=== PATIENT | female | born 1940 | race Caucasian/White ===

== ENCOUNTER 2022-08-20 16:03 | Emergency (ER) | payer OTHER, SELFPAY ==
[2022-08-20 16:17] VITALS: BP 150/72; PULSE 82; RESP 20; TEMP 36.7; O2SAT 97; BMI 33.1
--- NOTE | 2022-08-20 16:58 | ED.SKABFB ---
HPI - Skin/Abscess/Foreign Bdy General Chief complaint: Skin/Abscess/Foreign Body Stated complaint: Cellulitis Time Seen by Provider: 08/20/22 16:15 History of Present Illness HPI narrative: This 81-year-old female is sent here from urgent care clinic because of erysipelas. Her symptoms started 2 days ago. She was seen in urgent care yesterday and received an IM injection of Rocephin. She was told to come back the next day for recheck. She saw different provider today who sent her here stating that and she needed IV antibiotic and admission. I did receive a phone call from this provider after the patient was on the way by private vehicle. Patient arrives here with normal vital signs. She has not had any fevers. Her erythema has not spread significantly. There is a bit more edema in the inferior eyelids according to the patient's report. She feels normal otherwise. Related Data Home Medications Medication Instructions Recorded Confirmed furosemide 40 mg tablet 40 mg PO DAILY 08/20/22 08/20/22 metoprolol succinate 100 mg 100 mg PO Q12H 08/20/22 08/20/22 tablet,extended release 24 hr rivaroxaban 20 mg tablet (Xarelto) 20 mg PO DAILY 08/20/22 08/20/22 spironolactone 25 mg tablet 25 mg PO DAILY 08/20/22 08/20/22 Allergies Allergy/AdvReac Type Severity Reaction Status Date / Time No Known Drug Allergies Allergy Verified 08/20/22 16:21 Review of Systems Status of ROS: Reports: 10 or more systems reviewed and unremarkable except as noted in History and below Narrative: Constitutional: No fevers, no weight gain or loss. Eyes: No discharge. No vision changes. HENT: No congestion, no sore throat, no ear pain. Cardiovascular: No chest pain, no palpitations. Respiratory: No shortness of breath, no wheezes, no cough. Gastrointestinal: No abdominal pain, no vomiting, no diarrhea. Genitourinary: No dysuria, no hematuria. Musculoskeletal: Normal range of motion. Skin: No pruritis. Erythema involving the cheeks and nose. Neurological: No dizziness, weakness, sensory change, speech change. Endo/Heme/Allergies: No bruising or bleeding. No polydipsia. Pysch: no suicidality, no anxiety, no insomnia. All other systems reviewed and are negative. PFSH PFSH Social History Smoking Status: Former smoker Do you use any of these nicotine containing products: None Second hand tobacco smoke exposure: No How often do you have a drink containing alcohol: 2-3 times a week How many standard drinks containing alcohol do you have on a typical day: 1 or 2 AUDIT-C Alcohol total score: 3 Non-prescribed substance use: denies use Exam Narrative: Exam Narrative: Constitutional: Well-developed, well-nourished, no acute distress. HEENT: Normocephalic, atraumatic. Erythema across the cheeks and nose. There is mild edema in the lower eyelids. No purplish or black color to the skin. Neck: Normal range of motion. Nontender. Supple. Heart: Intact distal pulses. Lungs: No chest discomfort. No wheezes, rhonchi, or rales. Abdomen: Nontender. Back: Normal range of motion. Extremities: Normal range of motion. No injury. Skin: Intact. No rash. Warm. No erythema or pallor. Neurologic: No altered sensation. No weakness. Alert and oriented. Psychiatric: No suicidality. No anxiety or depression. No insomnia. Nursing notes and vitals signs are reviewed. Const: Vital Signs, click to edit/add: Vital Signs - 24 hr 08/20/22 16:17 Temperature 98.1 F Pulse Rate [Right Pulse Oximeter] 82 Respiratory Rate 20 Blood Pressure [Ri ght Upper Arm] 150/72 H Pulse Oximetry 97 Oxygen Delivery Me thod Room Air Course Vital Signs Vital signs: Initial Vital Signs Temperature 98.1 F 08/20/22 16:17 Temperature Source Temporal Artery Scan 08/20/22 16:17 Pulse Rate 82 08/20/22 16:17 Pulse Rhythm 08/20/22 16:17 Respiratory Rate 20 08/20/22 16:17 Blood Pressure 150/72 H 08/20/22 16:17 Blood Pressure Mean 98 08/20/22 16:17 Blood Pressure Position Sitting 08/20/22 16:17 Pulse Oximetry 97 08/20/22 16:17 Oxygen Delivery Method 08/20/22 16:17 Vital Signs Temperature 98.1 F 08/20/22 16:17 Pulse Rate 82 08/20/22 16:17 Respiratory Rate 20 08/20/22 16:17 Blood Pressure 150/72 H 08/20/22 16:17 Pulse Oximetry 97 08/20/22 16:17 Oxygen Delivery Method 08/20/22 16:17 Temperature 98.1 F 08/20/22 16:17 Pulse Rate 82 08/20/22 16:17 Respiratory Rate 20 08/20/22 16:17 Blood Pressure 150/72 H 08/20/22 16:17 Pulse Oximetry 97 08/20/22 16:17 Oxygen Delivery Method 08/20/22 16:17 MDM - Skin/Abscess/Foreign Bdy MDM Narrative Medical decision making narrative: This patient comes in with erysipelas. She did receive an IM dose of an antibiotic yesterday. She came in today for recheck and was promptly sent here. The patient states that she does not feel worse and other than the redness in her face she feels okay. She is not taking an oral antibiotic to treat this condition. I stated to her that her vital signs are reassuring and her exam is showing typical findings of erysipelas. The redness in her skin is her body's reaction to this superficial infection of the skin. She is not showing any signs of sepsis or more serious infection. I did offer to repeat Rocephin but indicated reassurance with her exam and vital signs. I did consult [place] guide for antimicrobial treatment. This infection is often easily treated with penicillin, macrolides, sulfa or cephalosporins. I did offer IV or IM treatment today but the patient elected to have oral antibiotic. I did describe signs and symptoms that would indicate a need for return and re-evaluation including fever, purple or black color to her skin, lightheadedness, or edema causing her eyes to swell shut and pain with movement of her eyes. These worsening signs or symptoms are unlikely to occur but she is aware of them and will return if needed. Discharge Plan Discharge Clinical Impression: Erysipelas Patient Disposition: Home, Self-Care Condition: Stable Additional Instructions: Take medication as prescribed. Follow up with MD or return if worsening. Prescriptions: No Action furosemide 40 mg tablet 40 mg PO DAILY Label Comments: TAKE 1 TABLET BY MOUTH EVERY MORNING. metoprolol succinate 100 mg tablet extended release 24 hr 100 mg PO Q12H Label Comments: TAKE 1 TABLET BY MOUTH TWICE A DAY Xarelto 20 mg tablet 20 mg PO DAILY Label Comments: TAKE 1 TABLET (20 MG) BY MOUTH ONCE DAILY WITH EVENING MEAL. spironolactone 25 mg tablet 25 mg PO DAILY Label Comments: TAKE 1 TABLET BY MOUTH EVERY DAY Stand Alone Forms: [employer] Info Instructions
--- NOTE | 2022-08-20 17:42 | ED.NURSE ---
[facility] medication machine was inoperable to obtain rx. First dose of abx was given here in ED and rx was sent electronically to [facility] in [place].
[2022-08-20] MEDS: AMOXICILLIN/CLAVULANATE 875 mg/125 mg TABLET PO (17:49)
== END 2022-08-20 18:39 | disposition home or self-care (01) ==
PROVIDERS: Emergency Provider Emergency Medicine Emergency Medical Services
DX: A46 Erysipelas (principal)
CPT/HCPCS: 99283; 99284; A9270